=== PATIENT | female | born 1945 | race Caucasian/White ===

== ENCOUNTER 2016-11-12 06:39 | Inpatient (IN) | payer MEDICAID ==
[2016-11-12 06:54] VITALS: BMI 34.3
--- NOTE | 2016-11-12 07:23 | ED PDOC ---
Arrival/HPI - General Chief Complaint: Medical Clearance Time Seen by Provider: 11/12/16 07:09 Historian: Patient, Family - History of Present Illness Narrative History of Present Illness (Text): 11/12/16 07:23 71 year old female with a past medical history that includes hypertension, diabetes, CAD, PE, not currently on anticoagulation, presents to the emergency department with two reported syncopal episodes this morning. Family at bedside and translating for patient. Family member states the patient woke up this morning and did not say much before reportedly passing out twice. Patient's son , not currently present with the patient, reportedly woke her up after the episode. She was not confused after these episodes and was denying any associated symptoms. Patient is complaining of numbness in the left cheek and the right fingers. Patient is also complaining of right lower extremity pain which is different from her usual knee pain. Denies chest pain, headache, abdominal pain, or vomiting, dysuria, diarrhea. Past Medical History - Infectious Disease Hx of Infectious Diseases: None - Tetanus Immunization Tetanus Immunization: Unknown - Cardiac Hx Cardiac Disorders: Yes Hx Hypertension: Yes Other/Comment: ACUTE [place].CAD - Pulmonary Hx Respiratory Disorders: No - Neurological Hx Neurological Disorder: No - HEENT Hx HEENT Disorder: Yes Hx Deafness: Yes - Renal Hx Renal Disorder: No - Endocrine/Metabolic Hx Endocrine Disorders: Yes Hx Diabetes Mellitus Type 2: Yes - Hematological/Oncological Hx Blood Disorders: Yes Hx Anemia: Yes - Integumentary Hx Dermatological Disorder: Yes (ABCESS TO ANT L CHEST WALL-POST I AND D 09-13-15 , L AXILLA ABSCESS ,BREAST) - Musculoskeletal/Rheumatological Hx Musculoskeletal Disorders: Yes - Gastrointestinal Hx Gastrointestinal Disorders: No - Genitourinary/Gynecological Hx Genitourinary Disorders: No - Psychiatric Hx Psychophysiologic Disorder: No Hx Substance Use: No - Surgical History Hx Coronary Artery Bypass Graft: Yes (2016) - Anesthesia Hx Anesthesia Reactions: No Hx Malignant Hyperthermia: No - Suicidal Assessment Feels Threatened In Home Enviroment: No Family/Social History Family/Social History: No Known Family HX Smoking Status: Never Smoked Hx Alcohol Use: No Hx Substance Use: No Allergies/Home Meds Allergies/Adverse Reactions: Allergies No Known Allergies Allergy (Verified 11/12/16 06:52) Home Medications: Home Meds Medication Instructions Recorded Confirmed Aspirin 325 mg PO DAILY 04/26/14 09/13/15 Atorvastatin Calcium [Lipitor] 20 mg PO DAILY 04/26/14 09/13/15 Clopidogrel [Plavix] 75 mg PO DAILY 04/26/14 09/13/15 Metoprolol Tartrate 50 mg PO BID 04/26/14 09/13/15 Review of Systems - Review of Systems Constitutional: absent: Fatigue, Weight Change, Fevers Eyes: absent: Vision Changes, Photophobia, Eye Pain ENT: absent: Hearing Changes Respiratory: absent: SOB, Cough, Sputum, Wheezing Cardiovascular: Calf Pain (right), Syncope. absent: Chest Pain, Palpitations Gastrointestinal: absent: Abdominal Pain, Diarrhea, Vomiting Genitourinary Female: absent: Dysuria Musculoskeletal: Arthralgias Skin: absent: Rash Neurological: Facial Droop (baseline to L side), Other (Numbness to the left cheek and right fingers). absent: Headache, Dizziness, Focal Weakness, Gait Changes, Speech Changes Hemo/Lymphatic: absent: Adenopathy Psychiatric: absent: Anxiety Physical Exam Vital Signs Reviewed: Yes Vital Signs Temp Pulse Resp BP Pulse Ox 11/12/16 06:53 97.6 F 99 H 18 157/83 H 97 Temperature: Afebrile Blood Pressure: Normal Pulse: Regular Respiratory Rate: Normal Appearance: Positive for: Well-Appearing, Non-Toxic, Comfortable Pain Distress: None Mental Status: Positive for: Alert and Oriented X 3 - Systems Exam Head: Present: Atraumatic, Normocephalic Pupils: Present: PERRL Extroacular Muscles: Present: EOMI Conjunctiva: Present: Normal Mouth: Present: Moist Mucous Membranes Neck: Present: Normal Range of Motion Respiratory/Chest: Present: Clear to Auscultation, Good Air Exchange. No: Respiratory Distress, Accessory Muscle Use Cardiovascular: Present: Regular Rate and Rhythm, Normal S1, S2. No: Murmurs Abdomen: Present: Normal Bowel Sounds. No: Tenderness, Distention, Peritoneal Signs Back: Present: Normal Inspection Upper Extremity: Present: Normal Inspection. No: Cyanosis, Edema Lower Extremity: Present: CALF TENDERNESS (R side), Normal ROM Neurological: Present: GCS=15, Speech Normal, Motor Func Grossly Intact, Gait Normal, Other (Baseline CN palsy (left eye droop and left mouth droop as per family). No: CN II-XII Intact, Normal Sensory Function (subjective numbness to L cheek and R pinky finger) Skin: Present: Warm (baseline CN 7 palsy (left eye and left mouth droop)), Dry, Normal Color. No: Rashes Psychiatric: Present: Alert, Oriented x 3, Normal Insight, Normal Concentration Medical Decision Making ED Course and Treatment: Patient is a presenting after syncope x 2 and also reporting L cheek numbness and R pinky finger numbness x 2 days. No history of neck problems and no complaint of neck pain. No anatomic distribution that explains CVA but due to numbness to L cheek with r/o (Outside TPA window if positive). Differential: cva vs pe vs dvt vs electrolyte abnormnalty vs acs vs tia --ct head to r/o cva --ekg --cxray --labs, including trop --likely cta --aspirin if ct head negative for hemorrhage. Will need admission for syncope with multiple cardiac risk factors 11/12/16 08:27 EKG shows NSR at 97bpm with normal intervals and no ST changes. Labs reviewed and signficiant for hyperglycemia with no gap and elevated d-dimer. Due to hx of PE and syncope, will need CTA to r/o PE. Trop x 1 negative 11/12/16 08:28 Cxray negative. 11/12/16 09:31 CT head negative. CTA negative for PE. Will add duplex US of lower extremities to evaluate for clot. Patient will need admission for multiple episodes of syncope. Will page hospitalist. 11/12/16 09:[address] Zabala. Patient to be admitted for syncope - Lab Interpretations Lab Results: 11/12/16 07:45 11/12/16 07:45 Lab Results 11/12/16 08:10: Urine Color Yellow, Urine Appearance Clear, Urine pH 7.0, Ur Specific [place] 1.010, Urine Protein Negative, Urine Glucose (UA) >=1000, Urine Ketones Negative, Urine Blood Trace-lysed H, Urine Nitrate Negative, Urine Bilirubin Negative, Urine Urobilinogen 0.2, Ur Leukocyte Esterase Trace H , Urine RBC 0 - 2, Urine WBC 5 - 10, Ur Epithelial Cells Many, Urine Bacteria Many 11/12/16 07:45: WBC 4.5 D, RBC 4.96, Hgb 13.1, Hct 39.2, MCV 79.0 L, MCH 26.4, MCHC 33.4, RDW 13.2, Plt Count 214, MPV 10.2, Gran % 69.1 H, Lymph % (Auto) 23.6 , [place] % (Auto) 6.0, Eos % (Auto) 1.1 L, Baso % (Auto) 0.2, Gran # 3.13, Lymph # 1.1 L, [place] # 0.3, Eos # 0.1, Baso # 0.01, PT 11.0, INR 1.02, APTT 23.7, D- Dimer, Quantitative 1.11 H, Sodium 132, Potassium 4.5, Chloride 95 L, Carbon Dioxide 26, Anion Gap 16, BUN 16, Creatinine 0.6, Est GFR ( Amer) > 60, Est GFR (Non-Af Amer) > 60, Random Glucose 403 H* D, Calcium 9.7, Phosphorus 3.8 , Magnesium 1.6 L, Total Bilirubin 1.1, AST 24, ALT 17, Alkaline Phosphatase 78 , Total Creatine Kinase 64, Troponin I < 0.01 D, NT-Pro-B Natriuret Pep 495 H, Total Protein 8.2, Albumin 4.3, Globulin 3.9, Albumin/Globulin Ratio 1.1 - RAD Interpretation Radiology Orders: 11/12/16 07:23 CHEST PORTABLE [RAD] Stat 11/12/16 07:40 HEAD W/O CONTRAST [CT] Stat 11/12/16 08:24 ANGIO CHEST PE PROTOCOL [CT] Stat 11/12/16 09:30 DUPLEX LOWER EXTRM VEIN RIGHT [US] Stat - EKG Interpretation Interpreted by ED Physician: Yes Type: 12 lead EKG - Medication Orders Current Medication Orders: Discontinued Medications Aspirin (Aspirin Chewable) 324 mg PO STAT STA Stop: 11/12/16 07:33 Last Admin: 11/12/16 09:34 Dose: 324 MG Iodixanol (Visipaque 320 Mg/Ml 100 Ml) Confirm Administered Dose 100 ml IV .STK- MED ONE Stop: 11/12/16 08:30 - Scribe Statement The provider has reviewed the documentation as recorded by the Maribel Moreno Provider Scribe Attestation: All medical record entries made by the Kristineibmimi were at my direction and personally dictated by me. I have reviewed the chart and agree that the record accurately reflects my personal performance of the history, physical exam, medical decision making, and the department course for this patient. I have also personally directed, reviewed, and agree with the discharge instructions and disposition. Disposition/Present on Arrival - Present on Arrival Any Indicators Present on Arrival: No History of DVT/PE: No History of Uncontrolled Diabetes: No Urinary Catheter: No History of Decub. Ulcer: No History Surgical Site Infection Following: None - Disposition Have Diagnosis and Disposition been Completed?: Yes Diagnosis: Syncope Disposition: HOSPITALIZED Disposition Time: 07:29 Patient Problems: Current Active Problems Problem Status Diagnosed Cellulitis of breast Acute Syncope Acute Condition: FAIR Discharge Instructions (ExitCare): Syncope (ED) Referrals: Heather Valentino DO [Primary Care Provider] - Follow up with primary
[2016-11-12 07:51] LABS: ADD MANUAL DIFF? NO
[2016-11-12 07:58] LABS: BASO # 0.01 [, K/mm3] (0.0-2.0); BASO % 0.2 % (0.0-3.0); EOS # 0.1 (0.0-0.7); EOS % 1.1 % (1.5-5.0); GRAN # 3.13 (1.4-6.5); GRAN % 69.1 % (50.0-68.0); HEMATOCRIT 39.2 % (36.0-48.0); LYMPH # 1.1 (1.2-3.4); LYMPH % 23.6 % (22.0-35.0); MEAN CORPUSCULAR HEMOGLOBIN 26.4 pg (25.0-35.0); MEAN CORPUSCULAR HGB CONC 33.4 g/dl (31.0-37.0); MEAN PLATELET VOLUME 10.2 fl (7.0-11.0); MONO # 0.3 (0.1-0.6); PLATELET COUNT 214 [, 10^3/uL] (120.0-450.0); RED CELL DISTRIBUTION WIDTH 13.2 % (11.5-14.5); WHITE BLOOD COUNT 4.5 [, 10^3/ul] (4.5-11.0)
[2016-11-12 08:10] LABS: ALB/GLOB RATIO 1.1 (1.1-1.8); ALKALINE PHOSPHATASE 78 U/L (38-133); ALT/SGPT 17 U/L (7-56); AST/SGOT 24 U/L (15-39); BILIRUBIN,TOTAL 1.1 mg/dL (0.2-1.3); BLOOD UREA NITROGEN 16 mg/dL (7-21); CALCIUM 9.7 mg/dL (8.4-10.5); CARBON DIOXIDE 26 mmol/L (21-33); CHLORIDE 95 mmol/L (98-107); GFR AFRICAN-AMERICAN > 60; MAGNESIUM 1.6 mg/dL (1.7-2.2); PHOSPHOROUS 3.8 mg/dL (2.5-4.5); POTASSIUM 4.5 mmol/L (3.6-5.0); SODIUM 132 mmol/L (132-148); TOTAL PROTEIN 8.2 g/dL (5.8-8.3)
[2016-11-12 08:14] LABS: INR 1.02 (0.93-1.08); PARTIAL THROMBOPLASTIN TIME 23.7 Seconds (23.7-30.8)
[2016-11-12 08:19] LABS: GLUCOSE,RANDOM 403 mg/dL (70-110)
[2016-11-12 08:21] LABS: TROPONIN I < 0.01 ng/mL
[2016-11-12 08:22] LABS: D DIMER 1.11 mg/L FEU (0-0.50)
[2016-11-12 08:29] LABS: URINE BILIRUBIN NEGATIVE (NEGATIVE); URINE BLOOD TRACE-LYSED (NEGATIVE); URINE GLUCOSE (UA) >=1000 mg/dL (NEGATIVE); URINE KETONE NEGATIVE (NEGATIVE); URINE LEUKOCYTE ESTERASE TRACE Leu/uL (NEGATIVE); URINE PROTEIN NEGATIVE mg/dL (<30 mg/dL); URINE UROBILINOGEN 0.2 E.U./dL (<1 E.U./dL)
[2016-11-12] MEDS ORDERED: Iodixanol 320 MG/ML 100 ML BOTTLE IV ONE (08:29)
[2016-11-12 08:33] LABS: URINE APPEARANCE CLEAR (CLEAR); URINE COLOR YELLOW (YELLOW)
--- NOTE | 2016-11-12 08:39 | CT ---
PROCEDURE: CT HEAD WITHOUT CONTRAST. HISTORY: numbness COMPARISON: 04/22/2014. TECHNIQUE: Axial computed tomography images were obtained through the head/brain without intravenous contrast. Radiation dose: Total exam DLP = 724.29 mGy-cm. FINDINGS: HEMORRHAGE: No intracranial hemorrhage. BRAIN: No mass effect or edema. Cortical atrophy, periventricular small vessel disease VENTRICLES: Unremarkable. No hydrocephalus. CALVARIUM: Unremarkable. PARANASAL SINUSES: Unremarkable as visualized. No significant inflammatory changes. MASTOID AIR CELLS: Unremarkable as visualized. No inflammatory changes. OTHER FINDINGS: None. IMPRESSION: No acute intracranial abnormalities. No significant findings to account for the clinical presentation. No significant interval change compared to the prior examination(s).
[2016-11-12 08:40] LABS: URINE RBC 0 - 2 /hpf (0-2)
[2016-11-12 08:41] LABS: URINE BACTERIA MANY (NEG); URINE EPITHELIAL CELLS MANY /hpf (0-5)
--- NOTE | 2016-11-12 09:14 | RAD ---
HISTORY: syncope COMPARISON: Comparison is made to the previous study dated 09/13/2015 FINDINGS: LUNGS: Mild pulmonary vascular congestion. PLEURA: No significant pleural effusion identified, no pneumothorax apparent. CARDIOVASCULAR: Mild cardiomegaly. OSSEOUS STRUCTURES: No significant abnormalities. VISUALIZED UPPER ABDOMEN: Normal. OTHER FINDINGS: None. IMPRESSION: Mild cardiomegaly and pulmonary vascular congestion.
--- NOTE | 2016-11-12 09:14 | CT ---
PROCEDURE: CT Chest with contrast (Pulmonary Angiogram) HISTORY: hx of PE, with multiple episodes of syncope COMPARISON: Comparison is made to the previous study dated 09/13/2015 TECHNIQUE: Axial computed tomography images were obtained of the chest in the pulmonary arterial phase of enhancement. Coronal and sagittal reformatted images were created and reviewed. Intravenous contrast dose: 100 mL Visipaque 320 Radiation dose: Total exam DLP = 368.46 mGy-cm. FINDINGS: PULMONARY ARTERIES: Unremarkable. No pulmonary embolism. AORTA: No acute findings. No thoracic aortic aneurysm. LUNGS: No significant interval change in the lungs noted since the previous exam. Again seen is 3 millimeter pleural based nodule at the left lung base image 75 series 5. PLEURAL SPACES: Trace pleural effusion and pleural thickening seen at the right chest base. HEART: The heart is mildly enlarged. LYMPH NODES: Mildly enlarged left mediastinal and hilar lymph nodes are noted. BONES, CHEST WALL: Interval resolving of the previously seen anterior chest wall opacity. Status post sternotomy. There is diffuse skin thickening seen. No significant interval change in the osseous structures. OTHER FINDINGS: Unremarkable. IMPRESSION: No evidence of pulmonary embolus. No evidence of acute pulmonary disease. Stable 3 millimeter nodule at the left lung base. Cardiomegaly. Trace left pleural effusion and pleural thickening.
--- NOTE | 2016-11-12 10:01 | CP.PCM.HP ---
<Collins Harvey - Last Filed: 11/12/16 20:43> History of Present Illness - History of Present Illness History of Present Illness: CC: Syncope 71yo F with PMHx of HTH, CAD, DM, Hx of PE, Hyperlipidemia here for evaluation of dizziness and fall x2. History obtained from Patient woke up 3AM this morning , when she got out of bed and started walking, she became dizzy and fell twice. She denies any LOC. Denies any head trauma. Denies any urinary or bowel incontinence, no seizure-like activity. Dizziness described as room-spinning, worse with ambulation. Patient also c/o right foot and right knee pain, associated with mild swelling. At baseline, patient is able to ambulate without any assistance. She also states that she has been non-compliant with her medications as prescribed and misses doses many times throughout the week. She does not know what medications she takes at home. She denies any shortness of breath, no chest pain. no F/C. No Abd pain. No N/V. No headache. Patient also c/ o some diarrhea x1 liquid episode that started in the ED. No sick contacts. Patient also c/o left cheek numbness and right 5th finger numbness. PMHx: HTN, CAD, DM, Hx of PE not on anticoagulation, Hyperlipidemia PSHx: CABG, I&D Abscess, Back surgery FM Hx: Denies Social Hx: Denies Tob, Denies ETOH, Denies Drug use. Lives with son in [facility] Present on Admission - Present on Admission Any Indicators Present on Admission: Yes History of DVT/PE: Yes Review of Systems - Review of Systems All systems: reviewed and no additional remarkable complaints except - Constitutional Constitutional: absent: Chills, Fever - EENT Eyes: absent: Change in Vision Ears: absent: Decreased Hearing Nose/Mouth/Throat: absent: Epistaxis, Nasal Congestion - Cardiovascular Cardiovascular: absent: Chest Pain, Diaphoresis, Dyspnea - Respiratory Respiratory: absent: Dyspnea - Gastrointestinal Gastrointestinal: absent: Abdominal Pain, Nausea, Vomiting - Genitourinary Genitourinary: absent: Difficulty Urinating, Dysuria - Musculoskeletal Musculoskeletal: absent: Abnormal Gait, Back Pain - Neurological Neurological: Dizziness. absent: Focal Weakness - Psychiatric Psychiatric: absent: Anxiety Past Patient History - Infectious Disease Hx of Infectious Diseases: None - Tetanus Immunizations Tetanus Immunization: Unknown - Past Medical History & Family History Past Medical History?: Yes - Past Social History Smoking Status: Never Smoked - CARDIAC Hx Cardiac Disorders: Yes Hx Hypertension: Yes Other/Comment: ACUTE [place].CAD - PULMONARY Hx Respiratory Disorders: No - NEUROLOGICAL Hx Neurological Disorder: No - HEENT Hx HEENT Problems: Yes Hx Deafness: Yes - RENAL Hx Chronic Kidney Disease: No - ENDOCRINE/METABOLIC Hx Endocrine Disorders: Yes Hx Diabetes Mellitus Type 2: Yes - HEMATOLOGICAL/ONCOLOGICAL Hx Blood Disorders: Yes Hx Anemia: Yes - INTEGUMENTARY Hx Dermatological Problems: Yes (ABCESS TO ANT L CHEST WALL-POST I AND D 09-13-15 , L AXILLA ABSCESS ,BREAST) - MUSCULOSKELETAL/RHEUMATOLOGICAL Hx Musculoskeletal Disorders: Yes - GASTROINTESTINAL Hx Gastrointestinal Disorders: No - GENITOURINARY/GYNECOLOGICAL Hx Genitourinary Disorders: No - PSYCHIATRIC Hx Psychophysiologic Disorder: No Hx Substance Use: No - SURGICAL HISTORY Hx Coronary Artery Bypass Graft: Yes (2015) - ANESTHESIA Hx Anesthesia Reactions: No Hx Malignant Hyperthermia: No Meds Allergies/Adverse Reactions: Allergies Allergy/AdvReac Type Severity Reaction Status Date / Time No Known Allergies Allergy Verified 11/12/16 13:30 Physical Exam - Constitutional Appears: Well, No Acute Distress - Head Exam Head Exam: ATRAUMATIC, NORMAL INSPECTION, NORMOCEPHALIC - Eye Exam Eye Exam: EOMI, Normal appearance, PERRL. absent: Scleral icterus Pupil Exam: PERRL - ENT Exam ENT Exam: Mucous Membranes Moist, Normal Exam - Neck Exam Neck exam: Positive for: Normal Inspection - Respiratory Exam Respiratory Exam: Clear to Auscultation Bilateral, NORMAL BREATHING PATTERN - Cardiovascular Exam Cardiovascular Exam: REGULAR RHYTHM, RRR, +S1, +S2. absent: JVD - GI/Abdominal Exam GI & Abdominal Exam: Normal Bowel Sounds - Extremities Exam Extremities exam: Positive for: normal inspection - Back Exam Back exam: NORMAL INSPECTION - Neurological Exam Neurological exam: Alert, CN II-XII Intact, Oriented x3 - Expanded Neurological Exam Expanded Patient oriented to: person, place, time Cranial nerves: EOM's Intact: Normal, Tongue Deviation: Normal Upper motor neuron: Pronator Drift: Normal Neuro motor strength exam: Left Upper Extremity: 5, Right Upper Extremity: 5, Left Lower Extremity: 5, Right Lower Extremity: 5 Coma Scale Eye Opening: SPONTANEOUS Coma Scale Motor Response: OBEYS COMMANDS Coma Scale Verbal: Oriented Coma Scale Total: 15 - Psychiatric Exam Psychiatric exam: Normal Affect, Normal Mood - Skin Skin Exam: Dry, Intact, Normal Color Results - Vital Signs Recent Vital Signs: Last Vital Signs Temp 97.6 F 11/12/16 06:53 Pulse 99 H 11/12/16 06:53 Resp 18 11/12/16 06:53 BP 157/83 H 11/12/16 06:53 Pulse Ox 97 11/12/16 06:53 - Labs Result Diagrams: 11/12/16 07:45 11/12/16 07:45 Labs: Laboratory Results - last 24 hr 11/12/16 11/12/16 07:45 08:10 WBC 4.5 D RBC 4.96 Hgb 13.1 Hct 39.2 MCV 79.0 L MCH 26.4 MCHC 33.4 RDW 13.2 Plt Count 214 MPV 10.2 Gran % 69.1 H Lymph % (Auto) 23.6 [place] % (Auto) 6.0 Eos % (Auto) 1.1 L Baso % (Auto) 0.2 Gran # 3.13 Lymph # 1.1 L [place] # 0.3 Eos # 0.1 Baso # 0.01 PT 11.0 INR 1.02 APTT 23.7 D-Dimer, Quantitative 1.11 H Sodium 132 Potassium 4.5 Chloride 95 L Carbon Dioxide 26 Anion Gap 16 BUN 16 Creatinine 0.6 Est GFR ( Amer) > 60 Est GFR (Non-Af Amer) > 60 Random Glucose 403 H* D Calcium 9.7 Phosphorus 3.8 Magnesium 1.6 L Total Bilirubin 1.1 AST 24 ALT 17 Alkaline Phosphatase 78 Total Creatine Kinase 64 Troponin I < 0.01 D NT-Pro-B Natriuret Pep 495 H Total Protein 8.2 Albumin 4.3 Globulin 3.9 Albumin/Globulin Ratio 1.1 Urine Color Yellow Urine Appearance Clear Urine pH 7.0 Ur Specific [place] 1.010 Urine Protein Negative Urine Glucose (UA) >=1000 Urine Ketones Negative Urine Blood Trace-lysed H Urine Nitrate Negative Urine Bilirubin Negative Urine Urobilinogen 0.2 Ur Leukocyte Esterase Trace H Urine RBC 0 - 2 Urine WBC 5 - 10 Ur Epithelial Cells Many Urine Bacteria Many Assessment & Plan - Assessment and Plan (Free Text) Assessment: 71yo F with PMHx of HTN, CAD, DM, Hx of PE not on anticoagulation, HLD, here for evaluation of Dizziness and Fall 1. Dizziness Left Cheek and Right 5th finger paresthesias low likelyhood of CVA History not consistent with Seizure likely orthostatic f/u orthostatic vitals CT head negative CXR - mild vascular congestion BNP mildly elevated EKG - NSR @97, no ST changes No IVF hydration Encourage regular salt, heart healthy diet Neurochecks f/u TSH f/u Troponins Zofran prn f/u ECHO f/u Urine culture Tele monitoring Strict I&O 2. Hx of PE and DVT 20 years ago after back surgery. not on anticoagulation now D-Dimer elevated CTA chest - no acute pulmonary embolus Venous Duplex - no evidence of DVT 3. Fall Right Ankle x-ray negative for fracture PT Eval and Treat Fall precautions Activity as tolerated 4. Hx of DM Hyperglycemic to 400 on admission Non-compliant with home regimen, misses multiple doses f/u HbA1C Insulin High dose SS Levemir 25 ACB Humalog 8U ACHS 5. Hx of HTN continue to monitor Start Metoprolol Succinate 50mg Daily Awaiting updated home medication list 6. Diarrhea single episode in ED f/u C.Diff studies if diarrhea presists 7. Hx of HLD f/u Lipid panel continue heart healthy diet 8. PPx Pepcid 20mg PO BID Heparin 5000U SC q12 Discussed case with Dr. China Harvey PGY1 <China HOLCOMB,Rosalee - Last Filed: 11/13/16 17:42> Results - Vital Signs Recent Vital Signs: Last Vital Signs Temp 98.3 F 11/13/16 11:32 Pulse 88 11/13/16 14:00 Resp 20 11/13/16 11:32 BP 154/76 H 11/13/16 11:51 Pulse Ox 95 11/13/16 06:00 - Labs Result Diagrams: 11/13/16 06:00 11/13/16 08:00 Labs: Laboratory Results - last 24 hr 11/12/16 11/12/16 11/13/16 11:11 21:23 06:00 WBC 3.9 L RBC 5.02 Hgb 13.0 Hct 39.6 MCV 78.9 L MCH 25.9 MCHC 32.8 RDW 13.4 Plt Count 221 MPV 10.2 Gran % 52.8 Lymph % (Auto) 39.4 H [place] % (Auto) 6.7 H Eos % (Auto) 0.8 L Baso % (Auto) 0.3 Gran # 2.04 Lymph # 1.5 [place] # 0.3 Eos # 0.0 Baso # 0.01 Sodium Potassium Chloride Carbon Dioxide Anion Gap BUN Creatinine Est GFR ( Amer) Est GFR (Non-Af Amer) POC Glucose (mg/dL) 277 H Random Glucose Hemoglobin A1c 12.6 H Calcium Lactate Dehydrogenase Total Creatine Kinase Troponin I 11/13/16 11/13/16 11/13/16 07:06 08:00 11:24 WBC RBC Hgb Hct MCV MCH MCHC RDW Plt Count MPV Gran % Lymph % (Auto) [place] % (Auto) Eos % (Auto) Baso % (Auto) Gran # Lymph # [place] # Eos # Baso # Sodium 134 Potassium 4.3 Chloride 98 Carbon Dioxide 24 Anion Gap 16 BUN 26 H Creatinine 0.8 Est GFR ( Amer) > 60 Est GFR (Non-Af Amer) > 60 POC Glucose (mg/dL) 365 H 368 H Random Glucose 477 H* Hemoglobin A1c Calcium 9.3 Lactate Dehydrogenase Total Creatine Kinase Troponin I 11/13/16 11/13/16 15:25 16:23 WBC RBC Hgb Hct MCV MCH MCHC RDW Plt Count MPV Gran % Lymph % (Auto) [place] % (Auto) Eos % (Auto) Baso % (Auto) Gran # Lymph # [place] # Eos # Baso # Sodium Potassium Chloride Carbon Dioxide Anion Gap BUN Creatinine Est GFR ( Amer) Est GFR (Non-Af Amer) POC Glucose (mg/dL) 267 H Random Glucose Hemoglobin A1c Calcium Lactate Dehydrogenase 410 Total Creatine Kinase 46 Troponin I < 0.01 Attending/Attestation - Attestation I have personally seen and examined this patient.: Yes I have fully participated in the care of the patient.: Yes I have reviewed all pertinent clinical information: Yes Notes (Text): Patient was seen and examined with medical geneticist .Family at bed side.Agreed with resident assessment and plan. 71 yrs old female with PMH of HTN,IRDM,PE not on anticoagulation at this was admitted with dizziness and vertigo, occur with change of position from sitting to standing, no other focal deficit, patient CT head is negative.CTA chest was negative for Pulmonary embolism. patient will be admitted to the hospital fro observation, will monitor neuro check, will get orthostatic vital, we will monitor patient in tele for arrythmia.We will also get 2D eCHO. Management plan was discussed in detail with patient and family. Education was provided.
[2016-11-12] MEDS: Insulin Lispro (HUMAlog) HIGH Coverage SC SCH ×2 (12:24→17:03)
[2016-11-12 13:04] LABS: CHOLESTEROL 196 mg/dL (130-200)
--- NOTE | 2016-11-12 14:05 | RAD ---
PROCEDURE: Right Ankle Radiographs. HISTORY: R ankle pain COMPARISON: None FINDINGS: BONES: Small calcaneal spur . No fracture. JOINTS: Normal. No osteoarthritis. Ankle mortise maintained. Talar dome intact SOFT TISSUES: Normal. OTHER FINDINGS: None. IMPRESSION: No evidence of acute fracture or dislocation.
[2016-11-12] MEDS ORDERED: Influenza Vaccine 45 MCG/0.5 ml IM ONE (15:25)
[2016-11-12] MEDS ORDERED: Pneumococcal 23-Valent Vaccine IM ONE (15:25)
--- NOTE | 2016-11-12 15:39 | CARD ---
APPROVED REPORT EKG Measurement Heart [id number] <Conclusion> Normal sinus rhythm Normal ECG
[2016-11-12] MEDS: Metoprolol Succinate 50 mg XL Tab PO SCH (16:11)
--- NOTE | 2016-11-12 17:32 | US ---
PROCEDURE: Right lower extremity venous US HISTORY: Leg pain and swelling. Evaluate for DVT. PHYSICIAN(S): Benjamin Ovalle M.D. TECHNIQUE: Duplex sonography and color-flow Doppler with graded compression were used to evaluate the deep venous system of the right lower extremity. FINDINGS: The visualized deep venous system of the right lower extremity is sonographically normal and compressible. Normal waveforms and augmentation are seen. There is no sonographic evidence for deep venous thrombosis in the visualized segments of the right lower extremity. IMPRESSION: 1. No sonographic evidence for deep venous thrombosis in the visualized segments of the right lower extremity.
[2016-11-13] MEDS: Insulin Lispro 1 UNITS/0.01 ML SC SCH ×5 (01:31→22:08)
[2016-11-13] MEDS: Insulin Lispro (HUMAlog) HIGH Coverage SC SCH ×5 (01:31→22:08)
[2016-11-13 06:52] LABS: ADD MANUAL DIFF? NO
[2016-11-13 07:09] LABS: BASO # 0.01 [, K/mm3] (0.0-2.0); BASO % 0.3 % (0.0-3.0); EOS % 0.8 % (1.5-5.0); GRAN # 2.04 (1.4-6.5); GRAN % 52.8 % (50.0-68.0); HEMATOCRIT 39.6 % (36.0-48.0); LYMPH # 1.5 (1.2-3.4); LYMPH % 39.4 % (22.0-35.0); MEAN CELL VOLUME 78.9 fL (80.0-105.0); MEAN CORPUSCULAR HEMOGLOBIN 25.9 pg (25.0-35.0); MEAN CORPUSCULAR HGB CONC 32.8 g/dl (31.0-37.0); MEAN PLATELET VOLUME 10.2 fl (7.0-11.0); MONO # 0.3 (0.1-0.6); MONO % 6.7 % (1.0-6.0); PLATELET COUNT 221 [, 10^3/uL] (120.0-450.0); RED CELL DISTRIBUTION WIDTH 13.4 % (11.5-14.5); WHITE BLOOD COUNT 3.9 [, 10^3/ul] (4.5-11.0)
[2016-11-13] MEDS ORDERED: Insulin Detemir 100 units/ml Vial (Levemir) SC SCH (07:30)
[2016-11-13 08:53] LABS: BLOOD UREA NITROGEN 26 mg/dL (7-21); CALCIUM 9.3 mg/dL (8.4-10.5); CARBON DIOXIDE 24 mmol/L (21-33); CHLORIDE 98 mmol/L (98-107); GFR AFRICAN-AMERICAN > 60; POTASSIUM 4.3 mmol/L (3.6-5.0); SODIUM 134 mmol/L (132-148)
[2016-11-13 09:25] LABS: GLUCOSE,RANDOM 477 mg/dL (70-110)
[2016-11-13] MEDS: Metoprolol Succinate 50 mg XL Tab PO SCH ×2 (09:27→11:58)
[2016-11-13] MEDS ORDERED: Oxycodone/Acetaminophen 5/325 mg Tab PO PRN (11:23)
--- NOTE | 2016-11-13 14:10 | CP.PCM.PN ---
<CandiceCollins - Last Filed: 11/13/16 14:06> Subjective - Date & Time of Evaluation Date of Evaluation: 11/13/16 Time of Evaluation: 07:45 - Subjective Subjective: Medicine Progress note. Dr. Atkinson Pt seen and examined at bedside. No acute events overnight. Patient states that her Right ankle pain has improved, however, she is now c/o Right Knee pain. She denies any F/C. She denies any more episodes of diarrhea since initial episode. No CP/SOB. No Abd pain. Objective - Vital Signs/Intake and Output Vital Signs (last 24 hours): Temp Pulse Resp BP Pulse Ox 98.3 F 91 H 20 154/76 H 95 11/13/16 11:32 11/13/16 11:51 11/13/16 11:32 11/13/16 11:51 11/13/16 06:00 Intake and Output: 11/13/16 11/13/16 06:59 18:59 Intake Total 600 Balance 600 - Medications Medications: Current Medications Aspirin (Ecotrin) 81 mg PO DAILY [facility] Last Admin: 11/13/16 11:51 Dose: 81 mg Famotidine (Pepcid) 20 mg PO BID [facility] Last Admin: 11/13/16 09:27 Dose: 20 mg Gabapentin (Neurontin) 600 mg PO TID [facility] PRN Reason: Protocol Heparin Sodium (Porcine) (Heparin) 5,000 units SC Q12 [facility] PRN Reason: Protocol Last Admin: 11/13/16 09:27 Dose: 5,000 units Insulin Detemir (Levemir) 25 unit SC ACB [facility] Last Admin: 11/13/16 09:29 Dose: 25 unit Insulin Human Lispro (Humalog High) 0 units SC ACHS [facility] PRN Reason: Protocol Last Admin: 11/13/16 11:48 Dose: 12 units Insulin Human Lispro (Humalog) 8 units SC ACHS [facility] Last Admin: 11/13/16 11:47 Dose: 8 units Lisinopril (Zestril) 10 mg PO DAILY [facility] Last Admin: 11/13/16 11:51 Dose: 10 mg Metoprolol Succinate (Toprol Xl) 50 mg PO DAILY [facility] Last Admin: 11/13/16 11:58 Dose: Not Given Ondansetron HCl (Zofran Inj) 4 mg IVP Q6 PRN PRN Reason: Nausea/Vomiting Oxycodone/Acetaminophen (Percocet 5/325 Mg Tab) 1 tab PO Q6H PRN PRN Reason: Pain, moderate (4-7) Stop: 11/16/16 11:24 - Labs Labs: 11/13/16 06:00 11/13/16 08:00 PT 11.0 Seconds (9.9-11.8) 11/12/16 07:45 INR 1.02 (0.93-1.08) 11/12/16 07:45 APTT 23.7 Seconds (23.7-30.8) 11/12/16 07:45 - Constitutional Appears: Well, No Acute Distress - Head Exam Head Exam: ATRAUMATIC, NORMAL INSPECTION, NORMOCEPHALIC - Eye Exam Eye Exam: EOMI, Normal appearance, PERRL. absent: Scleral icterus Pupil Exam: PERRL - ENT Exam ENT Exam: Mucous Membranes Moist, Normal Exam - Neck Exam Neck Exam: Full ROM, Normal Inspection - Respiratory Exam Respiratory Exam: Clear to Ausculation Bilateral, NORMAL BREATHING PATTERN. absent: Wheezes, Respiratory Distress - Cardiovascular Exam Cardiovascular Exam: REGULAR RHYTHM, RRR, +S1, +S2. absent: JVD - GI/Abdominal Exam GI & Abdominal Exam: Soft, Normal Bowel Sounds. absent: Distended, Guarding, Tenderness - Extremities Exam Extremities Exam: absent: Calf Tenderness, Pedal Edema Additional comments: Right knee tender to palpation, no erythema. - Neurological Exam Neurological Exam: Alert, Awake, Oriented x3 - Psychiatric Exam Psychiatric exam: Normal Affect, Normal Mood - Skin Skin Exam: Dry, Intact, Normal Color, Warm Assessment and Plan - Assessment and Plan (Free Text) Assessment: 71yo F with PMHx of HTN, CAD, DM, Hx of PE not on anticoagulation, HLD, here for evaluation of Dizziness and Fall 1. Dizziness Left Cheek and Right 5th finger paresthesias, does not fit any distribution, low likelyhood of CVA History not consistent with Seizure orthostatic vitals negative CT head negative CXR - mild vascular congestion BNP mildly elevated EKG - NSR @97, no ST changes No IVF hydration Encourage regular salt, heart healthy diet Neurochecks TSH wnl f/u Troponin to r/o ACS Zofran prn f/u ECHO Urine culture NGTD Tele monitoring Strict I&O 2. Hx of PE and DVT 20 years ago after back surgery. not on anticoagulation now D-Dimer elevated CTA chest - no acute pulmonary embolus Venous Duplex - no evidence of DVT 3. Fall Right Ankle x-ray negative for fracture F/u Right Knee x-ray PT Eval and Treat Fall precautions Activity as tolerated Percocet 1 tab prn pain 4. Hx of DM Hyperglycemic to 400 on admission Non-compliant with home regimen, misses multiple doses HbA1C 12.6 Insulin High dose SS Increased insulin regimen: Levemir 20U ACBHS, Humalog 12U ACHS Continue Gabapentin 5. Hx of HTN continue to monitor continue home meds Metoprolol Succinate 50mg Daily Lisinopril 10mg Daily 6. Diarrhea single episode in ED resolved 7. Hx of HLD Lipid panel within normal limits continue heart healthy diet 8. PPx Pepcid 20mg PO BID Heparin 5000U SC q12 Discussed case with Dr. China Harvey PGY1 <China HOLCOMB,Rosalee - Last Filed: 11/13/16 17:46> Objective - Vital Signs/Intake and Output Vital Signs (last 24 hours): Temp Pulse Resp BP Pulse Ox 98.3 F 88 20 154/76 H 95 11/13/16 11:32 11/13/16 14:00 11/13/16 11:32 11/13/16 11:51 11/13/16 06:00 Intake and Output: 11/13/16 11/13/16 06:59 18:59 Intake Total 600 480 Output Total 750 Balance 600 -270 - Medications Medications: Current Medications Aspirin (Ecotrin) 81 mg PO DAILY [facility] Last Admin: 11/13/16 11:51 Dose: 81 mg Famotidine (Pepcid) 20 mg PO BID [facility] Last Admin: 11/13/16 17:19 Dose: 20 mg Gabapentin (Neurontin) 600 mg PO TID [facility] PRN Reason: Protocol Last Admin: 11/13/16 17:19 Dose: 600 mg Heparin Sodium (Porcine) (Heparin) 5,000 units SC Q12 [facility] PRN Reason: Protocol Last Admin: 11/13/16 09:27 Dose: 5,000 units Insulin Detemir (Levemir) 20 unit SC ACBHS [facility] Insulin Human Lispro (Humalog High) 0 units SC ACHS [facility] PRN Reason: Protocol Last Admin: 11/13/16 17:20 Dose: 7 units Insulin Human Lispro (Humalog) 12 units SC ACHS [facility] Last Admin: 11/13/16 17:20 Dose: 12 units Lisinopril (Zestril) 10 mg PO DAILY [facility] Last Admin: 11/13/16 11:51 Dose: 10 mg Metoprolol Succinate (Toprol Xl) 50 mg PO DAILY [facility] Last Admin: 11/13/16 11:58 Dose: Not Given Ondansetron HCl (Zofran Inj) 4 mg IVP Q6 PRN PRN Reason: Nausea/Vomiting Oxycodone/Acetaminophen (Percocet 5/325 Mg Tab) 1 tab PO Q6H PRN PRN Reason: Pain, moderate (4-7) Stop: 11/16/16 11:24 Last Admin: 11/13/16 17:26 Dose: 1 tab - Labs Labs: 11/13/16 06:00 11/13/16 08:00 PT 11.0 Seconds (9.9-11.8) 11/12/16 07:45 INR 1.02 (0.93-1.08) 11/12/16 07:45 APTT 23.7 Seconds (23.7-30.8) 11/12/16 07:45 Attending/Attestation - Attestation I have personally seen and examined this patient.: Yes I have fully participated in the care of the patient.: Yes I have reviewed all pertinent clinical information, including history, physical exam and plan: Yes Notes (Text): Patient was seen and examined with medical appliance maker .Agreed with resident assessment and plan. 71 yrs old female with PMH of HTN,IRDM,PE not on anticoagulation at this was admitted with dizziness and vertigo, occur with change of position from sitting to standing, no other focal deficit, patient CT head is negative.CTA chest was negative for Pulmonary embolism.Patient is c.o right knee pain, X rays of knee showed degenerative changes, no acute fracture. Patient blood sugars are running high, we will adjust patient insulin regimen.We will monitor blood sugars. Patient is high risk for fall and need extra help at home.Discussed with case management . Management plan was discussed in detail with patient Education was provided.
--- NOTE | 2016-11-13 15:30 | RAD ---
PROCEDURE: Right Knee Radiographs. HISTORY: Knee pain COMPARISON: None. FINDINGS: BONES: There is no acute fracture or bone destruction. Bone alignment is normal. There is mild periarticular bone demineralization. JOINTS: There is mild tricompartmental degenerative osteoarthrosis, worse in the medial compartment. JOINT EFFUSION: There is a small suprapatellar joint effusion. OTHER FINDINGS: None. IMPRESSION: Mild tricompartmental degenerative osteoarthrosis, worse in the medial compartment. Small suprapatellar joint effusion.
[2016-11-13 16:09] LABS: TROPONIN I < 0.01 ng/mL
[2016-11-13] MEDS: Insulin Detemir 100 units/ml Vial (Levemir) SC SCH (22:09)
[2016-11-14 06:17] VITALS: O2SAT 96
[2016-11-14 07:12] LABS: BLOOD UREA NITROGEN 30 mg/dL (7-21); CALCIUM 8.9 mg/dL (8.4-10.5); CARBON DIOXIDE 25 mmol/L (21-33); CHLORIDE 98 mmol/L (98-107); GFR AFRICAN-AMERICAN > 60; POTASSIUM 4.3 mmol/L (3.6-5.0); SODIUM 134 mmol/L (132-148)
[2016-11-14 07:15] LABS: HEMATOCRIT 35.8 % (36.0-48.0); MEAN CELL VOLUME 78.5 fL (80.0-105.0); MEAN CORPUSCULAR HEMOGLOBIN 25.9 pg (25.0-35.0); MEAN PLATELET VOLUME 10.4 fl (7.0-11.0); RED CELL DISTRIBUTION WIDTH 13.4 % (11.5-14.5); WHITE BLOOD COUNT 4.9 [, 10^3/ul] (4.5-11.0)
[2016-11-14 07:29] LABS: GLUCOSE,RANDOM 309 mg/dL (70-110)
[2016-11-14] MEDS: Insulin Lispro (HUMAlog) HIGH Coverage SC SCH ×2 (07:46→12:51)
[2016-11-14] MEDS: Insulin Lispro 1 UNITS/0.01 ML SC SCH (08:21)
[2016-11-14] MEDS: Insulin Detemir 100 units/ml Vial (Levemir) SC SCH (08:21)
[2016-11-14] MEDS ORDERED: Insulin Lispro 1 UNITS/0.01 ML SC SCH (08:45)
[2016-11-14] MEDS ORDERED: Insulin Detemir 100 units/ml Vial (Levemir) SC SCH (08:45)
[2016-11-14] MEDS: Metoprolol Succinate 50 mg XL Tab PO SCH (10:38)
[2016-11-14 12:16] VITALS: BP 123/58; PULSE 81; RESP 20; TEMP 98.2
--- NOTE | 2016-11-14 14:11 | CP.PCM.DIS ---
Provider - Provider Date of Admission: 11/12/16 09:39 Attending physician: Rosalee Atkinson MD Primary care physician: Heather Valentino DO Time Spent in preparation of Discharge (in minutes): 45 Hospital Course - Lab Results Lab Results: Micro Results 11/12/16 12:28 Blood Blood Culture - Preliminary NO GROWTH AFTER 48 HOURS 11/12/16 10:02 Blood Blood Culture - Preliminary NO GROWTH AFTER 48 HOURS 11/12/16 09:45 Urine,Clean Catch Urine Culture - Final 50-100,000 CFU/ML. MULTIPLE SPECIES. SUGGEST REPEAT SPECIMEM. Most Recent Lab Values WBC 4.9 10^3/ul (4.5-11.0) D 11/14/16 06:15 RBC 4.56 10^6/uL (3.5-6.1) 11/14/16 06:15 Hgb 11.8 gm/dL (12.0-16.0) L 11/14/16 06:15 Hct 35.8 % (36.0-48.0) L 11/14/16 06:15 MCV 78.5 fL (80.0-105.0) L 11/14/16 06:15 MCH 25.9 pg (25.0-35.0) 11/14/16 06:15 MCHC 33.0 g/dl (31.0-37.0) 11/14/16 06:15 RDW 13.4 % (11.5-14.5) 11/14/16 06:15 Plt Count 207 10^3/uL (120.0-450.0) 11/14/16 06:15 MPV 10.4 fl (7.0-11.0) 11/14/16 06:15 Gran % 52.8 % (50.0-68.0) 11/13/16 06:00 Lymph % (Auto) 39.4 % (22.0-35.0) H 11/13/16 06:00 Ransom % (Auto) 6.7 % (1.0-6.0) H 11/13/16 06:00 Eos % (Auto) 0.8 % (1.5-5.0) L 11/13/16 06:00 Baso % (Auto) 0.3 % (0.0-3.0) 11/13/16 06:00 Gran # 2.04 (1.4-6.5) 11/13/16 06:00 Lymph # 1.5 (1.2-3.4) 11/13/16 06:00 Ransom # 0.3 (0.1-0.6) 11/13/16 06:00 Eos # 0.0 (0.0-0.7) 11/13/16 06:00 Baso # 0.01 K/mm3 (0.0-2.0) 11/13/16 06:00 PT 11.0 Seconds (9.9-11.8) 11/12/16 07:45 INR 1.02 (0.93-1.08) 11/12/16 07:45 APTT 23.7 Seconds (23.7-30.8) 11/12/16 07:45 D-Dimer, Quantitative 1.11 mg/L FEU (0-0.50) H 11/12/16 07:45 Sodium 134 mmol/L (132-148) 11/14/16 06:15 Potassium 4.3 mmol/L (3.6-5.0) 11/14/16 06:15 Chloride 98 mmol/L (98-107) 11/14/16 06:15 Carbon Dioxide 25 mmol/L (21-33) 11/14/16 06:15 Anion Gap 15 (10-20) 11/14/16 06:15 BUN 30 mg/dL (7-21) H 11/14/16 06:15 Creatinine 0.8 mg/dL (0.5-1.4) 11/14/16 06:15 Est GFR ( Amer) > 60 11/14/16 06:15 Est GFR (Non-Af Amer) > 60 11/14/16 06:15 POC Glucose (mg/dL) 305 mg/dL (65-110) H 11/14/16 08:28 Random Glucose 309 mg/dL (70-110) H* D 11/14/16 06:15 Hemoglobin A1c 12.6 % (4.2-6.5) H 11/12/16 11:11 Calcium 8.9 mg/dL (8.4-10.5) 11/14/16 06:15 Phosphorus 3.8 mg/dL (2.5-4.5) 11/12/16 07:45 Magnesium 1.6 mg/dL (1.7-2.2) L 11/12/16 07:45 Total Bilirubin 1.1 mg/dL (0.2-1.3) 11/12/16 07:45 AST 24 U/L (15-39) 11/12/16 07:45 ALT 17 U/L (7-56) 11/12/16 07:45 Alkaline Phosphatase 78 U/L (38-133) 11/12/16 07:45 Lactate Dehydrogenase 410 U/L (333-699) 11/13/16 15:25 Total Creatine Kinase 46 U/L (35-230) 11/13/16 15:25 Troponin I < 0.01 ng/mL 11/13/16 15:25 NT-Pro-B Natriuret Pep 495 pg/mL (0-450) H 11/12/16 07:45 Total Protein 8.2 g/dL (5.8-8.3) 11/12/16 07:45 Albumin 4.3 g/dL (3.0-4.8) 11/12/16 07:45 Globulin 3.9 gm/dL 11/12/16 07:45 Albumin/Globulin Ratio 1.1 (1.1-1.8) 11/12/16 07:45 Triglycerides 71 mg/dL (35-160) 11/12/16 11:11 Cholesterol 196 mg/dL (130-200) 11/12/16 11:11 LDL Cholesterol Direct 117 mg/dL (0-129) 11/12/16 11:11 HDL Cholesterol 57 mg/dL (29-60) 11/12/16 11:11 TSH 3rd Generation 2.86 mIU/mL (0.46-4.68) 11/12/16 11:21 Urine Color Yellow (YELLOW) 11/12/16 08:10 Urine Appearance Clear (CLEAR) 11/12/16 08:10 Urine pH 7.0 (4.7-8.0) 11/12/16 08:10 Ur Specific [place] 1.010 (1.005-1.035) 11/12/16 08:10 Urine Protein Negative mg/dL (<30 mg/dL) 11/12/16 08:10 Urine Glucose (UA) >=1000 mg/dL (NEGATIVE) 11/12/16 08:10 Urine Ketones Negative mg/dL (NEGATIVE) 11/12/16 08:10 Urine Blood Trace-lysed (NEGATIVE) H 11/12/16 08:10 Urine Nitrate Negative (NEGATIVE) 11/12/16 08:10 Urine Bilirubin Negative (NEGATIVE) 11/12/16 08:10 Urine Urobilinogen 0.2 E.U./dL (<1 E.U./dL) 11/12/16 08:10 Ur Leukocyte Esterase Trace Todd/uL (NEGATIVE) H 11/12/16 08:10 Urine RBC 0 - 2 /hpf (0-2) 11/12/16 08:10 Urine WBC 5 - 10 /hpf (0-6) 11/12/16 08:10 Ur Epithelial Cells Many /hpf (0-5) 11/12/16 08:10 Urine Bacteria Many (NEG) 11/12/16 08:10 - Hospital Course Hospital Course: Upon Admission: 71yo F with PMHx of HTN, CAD, DM, Hx of PE not on anticoagulation currently, HLD , here for dizziness and fall. Patient also c/o left cheek and right 5th digit paresthesias. This does not fit any nerve distribution and history does not suggest CVA or seizure activity. ACS ruled out with negative troponins x3. No EKG changes. CT head negative. TSH wnl, CXR with mild vascular congestion. Patient with a significant hx of CABG in the past, ECHO was obtained which showed septal hypokenesis with LVEF 45%. Patient has a history of PE 20 years ago, D-Dimer was elevated. CTA Chest was obtained with no evidence of PE. Hospital course was complicated with right ankle and right knee pain. Pain control with percocet. X-ray showed arthritic changes. The knee pain was likely due to trauma/sprain/musculoskeletal changes due to chronic arthritis exacerbated during the episode of dizziness and fall at home. Patient was evaluated with PT and was recommended home with services. Case management to work with the family in order to provide home health. 1. Dizziness; ACS ruled out. ECHO with LVEF 45% in the setting of Hx of CABG 2. Fall; Knee pain; Chronic Arthritis; Pain control 3. Elevated D-Dimer; No PE 4. DM; HbA1c 12.6. Ensure medication compliance at home. 5. HTN; Continue home meds 6. HLD; Lipid panel wnl Upon Discharge: Patient cleared for discharge as per Dr. Atkinson 1. Follow up with your Primary Care Physician within the next week. 2. Resume all home medications. Ensure the patient stays well hydrated. 3. Take pain meds as directed, as needed, sparingly 4. Use walker for ambulation. (prescription in chart) 5. Your HbA1c is 12.6. Check your blood glucose three times a day and keep a record for your primary care physician. 6. Follow new regimen of insulin as prescribed. (Prescriptions on chart). It may have to be adjusted when you follow up with your PCP. 7. Return to the ER with any concerning symptoms. New Prescriptions: 1. Percocet 5/325 1 tab PO q6h #15/0 2. Rolling walker 3. Levemir 25U SC q12. #1 vial/0 4. Humalog 12U SC ACHS Discharge Exam - Head Exam Head Exam: ATRAUMATIC, NORMAL INSPECTION, NORMOCEPHALIC - Eye Exam Eye Exam: EOMI, Normal appearance, PERRL. absent: Scleral icterus Pupil Exam: PERRL - ENT Exam ENT Exam: Mucous Membranes Moist - Respiratory Exam Respiratory Exam: Clear to PA & Lateral, NORMAL BREATHING PATTERN, UNREMARKABLE. absent: Wheezes, Respiratory Distress - Cardiovascular Exam Cardiovascular Exam: REGULAR RHYTHM, +S1, +S2. absent: Diastolic murmur, JVD, Systolic Murmur - GI/Abdominal Exam GI & Abdominal Exam: Soft. absent: Distended, Tenderness - Extremities Exam Extremities exam: normal inspection - Back Exam Back exam: NORMAL INSPECTION - Neurological Exam Neurological exam: Alert, Oriented x3 - Psychiatric Exam Psychiatric exam: Normal Affect, Normal Mood - Skin Skin Exam: Dry, Intact, Normal Color, Warm Discharge Plan - Discharge Medications Prescriptions: Insulin Detemir [Levemir] 25 units SC Q12 #1 vial oxyCODONE/Acetaminophen [Percocet 5/325 mg Tab] 1 tab PO Q6H PRN #15 tab PRN Reason: Pain, Moderate (4-7) Insulin Lispro [humALOG] 12 units SC ACHS #1 vial - Follow Up Plan Condition: FAIR Disposition: HOME/ ROUTINE Instructions: Syncope (DC), How to Check Your Blood Sugar (DC), Diabetes Mellitus Type 2 in Adults (DC), Fall Prevention for Older Adults (GEN), Meal Planning with the Plate Method (DC), Meal Planning with Diabetes Exchanges (DC) Additional Instructions: Patient cleared for discharge as per Dr. Atkinson 1. Follow up with your Primary Care Physician within the next week. 2. Resume all home medications. Ensure the patient stays well hydrated. 3. Take pain meds as directed, as needed, sparingly 4. Use walker for ambulation. (prescription in chart) 5. Your HbA1c is 12.6. Check your blood glucose three times a day and keep a record for your primary care physician. 6. Follow new regimen of insulin as prescribed. (Prescriptions on chart). It may have to be adjusted when you follow up with your PCP. 7. Return to the ER with any concerning symptoms. New Prescriptions: 1. Percocet 5/325 1 tab PO q6h #15/0 2. Rolling walker 3. Levemir 25U SC q12. #1 vial/0 4. Humalog 12U SC ACHS Referrals: Heather Valentino DO [Primary Care Provider] -
--- NOTE | 2016-11-14 14:50 | CARD ---
APPROVED REPORT EXAM: Two-dimensional and M-mode echocardiogram with Doppler and color Doppler. INDICATION Syncope 2D DIMENSIONS Left Atrium (2D)3.7 (1.6-4.0cm)IVSd1.0 (0.7-1.1cm) LVDd3.7 (3.9-5.9cm)PWd1.3 (0.7-1.1cm) LVDs2.8 (2.5-4.0cm)FS (%) 25.4 % LVEF (%)45.0 (>50%) M-Mode DIMENSIONS Aortic Root2.70 (2.2-3.7cm)Aortic Cusp Exc.1.70 (1.5-2.0cm) Aortic Valve AoV Peak Evsxwzed69.0cm/Ke Peak GR.4mmHg Mitral Valve MV E Xzeljlqo85.8cm/sMV A Ghtgyxjg88.4cm/sE/A ratio0.9 TDI Lateral E' Peak V5.07cm/sMedial E' Peak V4.00cm/sE/Lateral E'14.4 E/Medial E'18.2 Pulmonary Valve PV Peak Tqqalbtp72.7cm/sPV Peak Grad.2mmHg Tricuspid Valve TR Peak [id number]/sRAP [id number] Peak Gr.21mmHg [id number] LEFT VENTRICLE The left ventricle is normal size. There is normal left ventricular wall thickness. The systolic function is mildly impaired. Septal hypokinesis Transmitral Doppler flow pattern is Grade I-abnormal relaxation pattern. RIGHT VENTRICLE The right ventricle is normal size. There is normal right ventricular wall thickness. The right ventricular systolic function is normal. ATRIA The left atrium size is normal. The right atrium size is normal. AORTIC VALVE The aortic valve is normal in structure. No aortic regurgitation is present. MITRAL VALVE There is no mitral valve regurgitation noted. TRICUSPID VALVE There is no pulmonary hypertension. GREAT VESSELS The aortic root is normal in size. The IVC is normal in size and collapses >50% with inspiration. PERICARDIAL EFFUSION There is no pericardial effusion. <Conclusion> The left ventricle is normal size. There is normal left ventricular wall thickness. The systolic function is mildly impaired. Septal hypokinesis Transmitral Doppler flow pattern is Grade I-abnormal relaxation pattern.
== END 2016-11-14 18:36 | disposition home or self-care (01) | DRG 141 ==
LOC: ED 06:39 → ERH 09:39 → 2RSO 16:38
PROVIDERS: ADMIT Internal Medicine; ATTEND Internal Medicine
DX: R55 Syncope and collapse (principal); R42 Dizziness and giddiness; E11.65 Type 2 diabetes mellitus with hyperglycemia; I10 Essential (primary) hypertension; I25.10 Atherosclerotic heart disease of native coronary artery without angina pectoris; E78.5 Hyperlipidemia, unspecified; M25.561 Pain in right knee; M25.571 Pain in right ankle and joints of right foot; R19.7 Diarrhea, unspecified; Z91.81 History of falling; Z91.19 Patient's noncompliance with other medical treatment and regimen; Z79.82 Long term (current) use of aspirin; Z95.1 Presence of aortocoronary bypass graft; Z86.718 Personal history of other venous thrombosis and embolism; Z86.711 Personal history of pulmonary embolism